=== PATIENT | female | born 1985 | race Caucasian/White ===

== ENCOUNTER → 2023-01-25 15:26 | Outpatient (CLI) | payer OTHER, SELFPAY ==
--- NOTE | 2023-01-25 11:45 | DI.RAD_ITS ---
Exam(s) XR FOOT RT COMPLETE EXAM: XR FOOT RT COMPLETE CLINICAL HISTORY: stepped nail 6 mos ago. Pain and swelling. S91.331A PUNCTURE WOUND. TECHNIQUE: 2D digital imaging was performed of the right foot. Three images were obtained. AP, obl ique and lateral views were obtained. COMPARISON: No exams were available for comparison FINDINGS: BONES: No acute fracture is present. No bony destructive lesion is seen. JOINTS: No dislocation present. SOFT TISSUE: Normal. No radiopaque foreign body. IMPRESSION: No acute abnormality. DATA REPOSITORY: RADIATION DOSE DELIVERED:
== END ==
PROVIDERS: Visit Provider Nurse Practitioner
DX: S91.331D Puncture wound without foreign body, right foot, subsequent encounter (principal); X58.XXXD Exposure to other specified factors, subsequent encounter
CPT/HCPCS: 73630

== ENCOUNTER 2024-07-24 15:21 | Outpatient (REF) | payer BC, SELFPAY ==
--- NOTE | 2024-07-24 15:30 | PAPFT_PTH ---
PATIENT: Frederick Salguero LOC: [facility] U#:[id number] AGE/SX: 39/F ROOM: RE07/24/[address]: Garima Estrada DO : 1985 BED: DIS: 07/24/2024 SPEC #: [id number] RECD: 07/24/24 18:00 STATUS: MOOSETom REVivienne #: [id number] CHELITA: 07/24/24 15:[address]: Garima Estrada DEPT: [facility] Cytology RECD BY: Marlene Ruiz ENTERED: 07/24/24 18:01 SP TYPE: PAPFT OTHR DR: Shira Hahn APRN Tissues: 1 - CX/ENDOCX FOR PAP SMEARS Procedures: PAP THIN PREP/[facility] Screening HPV DNA PROBE Comments: [id number] (HPV 16 & 18/45)
== END 2024-07-24 15:22 | disposition home or self-care (01) ==
LOC: LBN 15:21
PROVIDERS: PCP Nurse Practitioner; Visit Provider Obstetrics & Gynecology
DX: Z31.9 Encounter for procreative management, unspecified (principal); Z01.419 Encounter for gynecological examination (general) (routine) without abnormal findings
CPT/HCPCS: 88142; 87624

== ENCOUNTER 2024-09-12 02:21 | Outpatient (CLI) | payer BC, SELFPAY ==
[2024-09-12 10:49] LABS: Abs Immature Grans 0.01 10^3/uL (0.0-0.06); Absolute Basophil Count 0.05 10^3/uL (0.0-0.2); Absolute Eosinophil Count 0.05 10^3/uL (0.0-0.7); Absolute Lymphocyte Count 2.78 10^3/uL (1.2-3.4); Absolute Monocyte Count 0.62 10^3/uL (0.1-0.8); Absolute Neutrophil Count 2.45 10^3/uL (1.2-6.7); Basophils % 0.8 %; Eosinophils % 0.8 %; HCT 41.6 % (36.0-46.0); HGB 13.8 g/dL (11.2-15.7); Immature Grans % 0.2 %; Lymphocytes % 46.6 %; MCH 32.8 pg (27.0-33.0); MCHC 33.2 % (32.0-36.0); MCV 99 fL (80-95); MPV 9.3 fL (8.0-11.0); Monocytes % 10.4 %; Neutrophils % 41.2 %; Platelet Count 349 10^3/uL (130-400); RBC 4.21 10^6/uL (3.93-5.22); RDW 12.3 % (11.7-14.6); RDW-SD 44.6 fL; WBC 5.96 10^3/uL (4.4-10.8)
[2024-09-12 11:51] LABS: ALT 19 U/L (14-59); AST 20 U/L (15-37); Albumin 4.3 g/dL (3.4-5.0); Alkaline Phosphatase 80 U/L (46-116); BUN 12 mg/dL (7-18); Bilirubin, Total 0.5 mg/dL (0.2-1.0); CREATININE 0.9 mg/dL (0.55-1.02); Calcium 9.7 mg/dL (8.5-10.1); Calculated LDL 105 mg/dL (<100); Chloride 105 mmol/L (98-107); Cholesterol 187 mg/dL (<200); Estimated GFR 84.44 (mL/min/1.73m2); Glucose 81 mg/dL (74-106); HDL Cholesterol 66 mg/dL (>or=50); Potassium 3.8 mmol/L (3.5-5.1); Sodium 142 mmol/L (136-145); TSH (W/Ref FT4) 6.36 uIU/mL (0.36-3.74); Total Protein 8.1 g/dL (6.4-8.2); Triglyceride 80 mg/dL (<150)
[2024-09-12 12:12] LABS: FREE T4 0.87 ng/dL (0.76-1.46)
== END 2024-09-12 02:22 | disposition home or self-care (01) ==
LOC: LBO 02:22
PROVIDERS: PCP Nurse Practitioner; Visit Provider Nurse Practitioner
DX: Z13.220 Encounter for screening for lipoid disorders (principal); Z83.49 Family history of other endocrine, nutritional and metabolic diseases; R53.83 Other fatigue
CPT/HCPCS: 36415; 80053; 80061; 84439; 84443; 85025